=== PATIENT | female | born 1975 | race Caucasian/White ===

== ENCOUNTER → 2016-04-05 | Outpatient (CLI) | payer BC, MEDICARE ==
[2014-01-02 14:34] VITALS: BP 106/65
[~2016-04-05] MED LIST: AMIT25TA PO; CIPR500T94 PO; DIAZ5TAB4 PO; Hydrocodone/Acetaminophen PO; IOHEXOL 180 MG/ML 10 ML VIAL. ONE; METR500T PO; NAPR500T3 PO; OXYC-323 PO; TIZA4TAB PO; TOPI100T90 PO; VENL150C PO; methylPREDNISolone ACETATE 40 MG/ML VIAL. ONE; methylPREDNISolone ACETATE 80 MG/ML VIAL. ONE
--- NOTE | 2016-04-05 17:30 | PAIN ---
DATE OF SERVICE: 04/05/2016 INITIAL CONSULTATION CHIEF COMPLAINT: Low back and right lower extremity pain. HISTORY OF PRESENT ILLNESS: This is a 40-year-old female who presents with history of pain for about 5 months, increasing in the low back and right lower extremity, radiating to the posterior gluteus, posterolateral thigh, lateral anterior thigh, medial lower leg and lateral posterior lower leg into the foot and involving the lateral toes. The patient reports it is worse with standing and walking, changing positions, walking more than about 50 yards. The patient reports the pain is constant, sharp, stabbing, shooting and throbbing with radiating pain in the right leg as described. The patient did have some physical therapy as recently as January 2016, which she reports did help to a mild extent. Also has some chiropractic treatment in the past, which has been helpful, but nothing has been decreasing the pain significantly. The patient has tried naproxen as well as oxycodone and diazepam, all of which do decrease the pain to a moderate extent, but nothing keeping it away permanently. The patient reports no injury or accident she is aware of the pain became up fairly suddenly. The patient did have MRI scan of the lumbar spine on 03/20/2016 showing degenerative disk disease involving the mid and lower lumbar spine with mild central spinal canal stenosis at L4-L5 with mild generalized disk bulge at this level as well as L5-S1 and L3-L4 without significant stenosis at L3-L4 and L5-S1 levels with mild central stenosis at L4-L5. The patient reports her disability rating from 0 to 10, 10 being the worst, is an 8 with family and home responsibilities and recreation, 7 with social activity and occupation, 9 with sexual behavior, 6 with self care and 7 with life support activities. PAST MEDICAL HISTORY: Significant for arthritis, fibromyalgia, depression, dizziness, headaches, irritable bowel syndrome, cigarette smoking. PREVIOUS SURGERY: Include total hysterectomy in 2006, right knee scope in the past, laparoscopic cholecystectomy in 2014 and left ankle surgery in the past as well. CURRENT MEDICATIONS: Include diazepam, naproxen, tizanidine, oxycodone, amitriptyline, and Effexor. ALLERGIES: The patient has no known drug allergies. FAMILY HISTORY: Significant for depression and degenerative disk disease in patient's mother. SOCIAL HISTORY: The patient does not drink, is , lives with her spouse and 2 children at home, does smoke less than a pack a day of cigarettes over the past 15 years. REVIEW OF SYSTEMS: The patient's review of systems is positive for those items mentioned in the history of present illness. All systems reviewed and otherwise negative. It is complete, full and well documented on the patient's chart. PHYSICAL EXAMINATION: VITAL SIGNS: Today, blood pressure is 128/82, pulse 79, respirations 20, temperature is 98.4 degrees Fahrenheit. Height is 5 feet 5-1/2 inches and weight is 230 pounds. GENERAL: The patient is awake, alert, oriented, appropriate, very pleasant demeanor. HEENT: Head shows normocephalic, atraumatic. Extraocular movements are intact and symmetrical. Oral cavity shows mucous membranes moist and pink. Dentition is intact. NECK: Shows anterior throat supple without palpable lymphadenopathy noted. Swallow reflex is symmetrical. CHEST: Shows normal on inspection. Breath sounds clear to auscultation bilaterally. HEART: Shows S1 and S2 clear. ABDOMEN: Obese, soft, nontender, nondistended. No palpable organomegaly is noted. No rebound or guarding demonstrated. BACK: The patient's back shows spine grossly in midline. Normal-appearing thoracic kyphosis and lumbar lordotic curvatures. The patient's lumbar paraspinous musculature shows some moderate tenderness with palpation bilaterally in the middle and lower distribution of paraspinous muscles, but only diffusely without evidence of atrophy or hypertrophy. The patient shows good rotation and motion of the lumbar spine, both laterally greater than 10 degrees, right and left as well as extension greater than 10 degrees, forward flexion 45 degrees. No tenderness over the spinous processes. No tenderness over the sacrum and sacroiliac regions bilaterally. EXTREMITIES: Lower extremities show deep tendon reflexes at 2+ in the patellar, 1+ tendo calcaneus tendons. Motor exam is strong with 5/5 dorsiflexion and extension as well as quadriceps and hamstring flexion and are intact. Peripheral pulses are 1+ posterior tibial and dorsalis pedis pulses. No peripheral edema is noted. No clubbing, no cyanosis. Lower extremities are warm and dry to touch, equal in color and appearance. Straight leg raising noted to be positive on the right at about 45 degrees with pain at the lateral and posterior right thigh as well as into the medial lower leg, which is decreased with knee flexion. Left side is negative. Gaenslen's and Elliott's maneuvers are negative bilaterally. The patient is able to stand, stand on her toes without significant difficulty or loss of balance, is walking with a normal-appearing gait for short distance in the office, is not using any assistive devices such as canes or walkers to ambulate. IMPRESSION: 1. This is a 40-year-old female with about a 5-month history of increasing pain in low back, right lower extremity pain. She has had a history of back pain in the past, but never with radicular qualities as extensive and is distance in the leg and foot as she is experiencing now. 2. MRI scan as noted. 3. History of arthritis. 4. Fibromyalgia. 5. Cigarette smoking. PLAN: Options were discussed with the patient including conservative medical management, physical therapy, interventional techniques and she is doing physical therapies on her own at home and still does stretching and strengthening exercises. She would like to pursue interventional techniques. We discussed a lumbar epidural steroid injection using description as well as anatomical models to describe the procedure. Risks were then discussed including, but not limited to bleeding, infection, possibility of epidural hematoma and subsequent neurologic compromise, dural puncture, headaches, spinal cord and/or nerve damage, side effects of steroid medication and poor results regarding pain control. The patient understands and wished to proceed. The patient will return to clinic in approximately 2 weeks for followup. She was counseled on her return appointment, activity level, and side effects to be aware of. DIAGNOSES: Lumbar radiculopathy with lumbar degenerative disk disease. PROCEDURE: Lumbar epidural steroid injection, translaminar approach at the L4-L5 level using fluoroscopic guidance under sterile prep and drape with local anesthesia. MEDICATIONS INJECTED: Depo-Medrol 120 mg plus 10 mL of preservative-free normal saline and 2 mL Isovue for contrast. CONDITION AT DISCHARGE: Stable. The patient tolerated the procedure well, had no complications. TREV MORALEZ MD DR: JOEL/josé luis JOB#: [id number] / [id number]
== END | disposition home or self-care (01) ==
LOC: PNCL 07:49
PROVIDERS: ATTEND Anesthesiology
DX: M51.16 Intervertebral disc disorders with radiculopathy, lumbar region (principal); M19.90 Unspecified osteoarthritis, unspecified site; F32.9 Major depressive disorder, single episode, unspecified; F17.200 Nicotine dependence, unspecified, uncomplicated
CPT/HCPCS: 62323; J1030; J1040; 62327

== ENCOUNTER → 2016-04-19 | Outpatient (CLI) | payer BC, MEDICARE ==
[2014-01-02 14:34] VITALS: BP 106/65
--- NOTE | 2016-04-19 22:21 | PAIN ---
DATE OF SERVICE: 04/19/2016 DIAGNOSES: Lumbar radiculopathy with lumbar degenerative disk disease. HISTORY OF PRESENT ILLNESS: The patient is a 40-year-old female who returns for followup status post lumbar epidural steroid injection x 1. The patient reports about 75% improvement for the first week or so, the pain began to return in the low back and right lower extremity, mostly in the anterior thigh, lateral thigh, medial thigh, but less radiating into the lower leg than it was previously. The patient reports some pain in and across the back as well, but significant improvement from previous pain level. The patient reports the pain can be as high as an 8 on a scale of 10, but it is mostly about 3-4 on most days. The patient reports no new motor or sensory deficits, no new bowel or bladder incontinence or other complaints. PHYSICAL EXAMINATION: VITAL SIGNS: Show blood pressure 118/83, pulse 91, respirations are 18, temperature is 98.5 degrees Fahrenheit. Height is 5 feet 5 inches, weight 226 pounds. GENERAL: The patient is awake, alert, oriented, appropriate, very pleasant demeanor. HEENT: Head shows normocephalic, atraumatic. Extraocular movements intact, symmetrical. Oral cavity, mucous membranes are moist and pink. Dentition is intact. NECK: Shows anterior throat supple without palpable lymphadenopathy noted. Swallow reflex is symmetrical. CHEST: Shows normal on inspection. Breath sounds are clear to auscultation bilaterally. HEART: Shows S1 and S2 clear. ABDOMEN: Soft, obese, nontender, nondistended. No palpable organomegaly is noted. BACK: Shows spine grossly midline, normal appearing thoracic kyphosis and lumbar lordotic curvature. Lumbar paraspinous muscle shows some moderate tenderness with palpation in the lower lumbar distribution bilaterally, right and left, with some significant tenderness over the posterior superior iliac spine on the left side, but only very discrete point tenderness in this region without radiation. No tenderness over the sacrum and sacroiliac regions. The patient shows good rotation and motion of the lumbar spine, both laterally as well as extension and flexion without difficulty. EXTREMITIES: Lower extremities showed deep tendon reflexes 2+ in the patellar tendons. Motor exam is strong with 5/5 dorsiflexion, extension, quadriceps and hamstring flexion and equal bilaterally. Options were discussed with the patient and the patient's old chart was reviewed as her current medication regimen and updated. Current review of systems updated today as well. We will plan on second lumbar epidural steroid injection today with fluoroscopic guidance. Risks were again discussed including, but not limited to bleeding, infection, possibility of epidural hematoma, subsequent neurologic compromise, dural puncture, headaches, spinal cord and/or nerve damage, side effects of steroid medication and poor results regarding pain control. The patient understands and wishes to proceed. The patient will return to clinic in approximately 2 weeks for followup, was counseled on return appointment, activity level and side effects to be aware of. DIAGNOSIS: Lumbar radiculopathy with lumbar degenerative disk disease. PROCEDURES: Lumbar epidural steroid injection, translaminar approach, at the L4-L5 level using C-arm fluoroscopic guidance, under sterile prep and drape using local anesthetic. Medication injected is 120 mg Depo-Medrol plus 10 mL of preservative-free normal saline and 2 mL of Isovue for contrast. CONDITION AT DISCHARGE: Stable. The patient tolerated procedure well, had no complications. TREV MORALEZ MD DR: JOEL/josé luis JOB#: [id number] / [id number]
== END ==
LOC: PNCL 08:40
PROVIDERS: ATTEND Anesthesiology
DX: M51.16 Intervertebral disc disorders with radiculopathy, lumbar region (principal); M79.7 Fibromyalgia; D64.9 Anemia, unspecified; J45.909 Unspecified asthma, uncomplicated; F32.9 Major depressive disorder, single episode, unspecified
CPT/HCPCS: 62323; J1030; J1040

== ENCOUNTER → 2016-05-10 | Outpatient (CLI) | payer BC, MEDICARE ==
[2014-01-02 14:34] VITALS: BP 106/65
--- NOTE | 2016-05-11 21:41 | PAIN ---
DATE OF SERVICE: 05/10/2016 DIAGNOSES: Lumbar radiculopathy with lumbar degenerative disk disease. HISTORY OF PRESENT ILLNESS: The patient is a 40-year-old female who returns for followup status post lumbar epidural steroid injections x 2. The patient reports about 50-70% improvement, but only lasting about a week to week and a half after the injection. The patient reports now her pain is a 10 on a scale of 10 in the low back, mostly on the right side, also some pain in the low back on the left side, but in the right leg anterior lateral thigh, medial lower leg, the lower leg is much better than the upper leg still 8 on a scale of 10 in the upper leg and a 10 in the back. The patient reports no new motor or sensory deficits, no new bowel or bladder incontinence, still significant pain aching and dull with some radiating pain into the right leg as it was previously, again it is worse with standing and walking and changing position, however, she is sleeping better at night recently. PHYSICAL EXAMINATION: VITAL SIGNS: The patient's blood pressure is 124/80, pulse 90, respirations 18, temperature 98.2 degrees Fahrenheit, height is 5 feet 5 inches, weighs 226 pounds. GENERAL: The patient is awake, alert, oriented, appropriate, very pleasant demeanor. HEENT: Head shows normocephalic, atraumatic. Extraocular movements are intact and symmetrical. Oral cavity, mucous membranes are moist and pink. Dentition is intact. NECK: Shows anterior throat supple without palpable lymphadenopathy noted. Swallow reflex is symmetrical. Neck shows full rotation and motion of the cervical spine without difficulty. CHEST: Shows normal on inspection. Breath sounds are clear to auscultation bilaterally. HEART: Shows S1 and S2 clear. ABDOMEN: Obese, soft, nontender, nondistended. No palpable organomegaly, no rebound or guarding demonstrated. BACK: Shows spine grossly midline. Slight exaggeration of thoracic kyphosis, but normal lumbar lordotic curvature. Lumbar paraspinous musculature shows symmetrical on inspection with palpation is moderately tender with palpation in the middle and lower distribution, but only diffusely and only to a moderate extent without radiation, without asymmetry, without atrophy, hypertrophy. No tenderness with palpation over the sacrum and sacroiliac regions. The patient shows good rotation and motion of the lumbar spine, both laterally as well as extension and flexion without difficulty. EXTREMITIES: Lower extremities show deep tendon reflexes at 2+ in the patellar, 1+ tendo-calcaneus tendons are equal. Motor exam is strong with 5/5 dorsiflexion, extension, quadriceps and hamstring flexion and are symmetrical. Peripheral pulses are 1+ posterior tibial and dorsalis pedis pulses. No peripheral edema is noted. PLAN: Options were discussed with the patient. The patient's old chart was reviewed as her current medication regimen and updated. Current review of systems updated today as well. We will proceed with a third lumbar epidural steroid injection today with fluoroscopic guidance. Risks were again discussed including, but not limited to bleeding, infection, possibility of epidural hematoma, subsequent neurologic compromise, dural puncture, headaches, spinal cord and/or nerve damage, side effects of steroid medication and poor results regarding pain control. The patient understands and wishes to proceed. The patient will return to clinic in approximately 2 weeks for followup. She was counseled as to return appointment, activity level and side effects to be aware of. Also, will set up physical therapy with water pool therapy for the patient as ____ feel this may be the most helpful for her in the future. She was counseled as to maintaining this regimen as well as doing home strengthening and stretching exercises as they have shown her in the past with physical therapy. DIAGNOSIS: Lumbar radiculopathy with lumbar degenerative disk disease. PROCEDURES: Lumbar epidural steroid injection in translaminar approach at the L4-L5 level using C-arm fluoroscopic guidance under sterile prep and drape with local anesthetic. MEDICATIONS INJECTED: Depo-Medrol 120 mg plus 10 mL of preservative-free normal saline and 2 mL Isovue contrast. CONDITION AT DISCHARGE: Stable. The patient tolerated the procedure well, had no complications. TREV MORALEZ MD DR: JOEL/josé luis JOB#: [id number] / [id number]
== END | disposition home or self-care (01) ==
LOC: PNCL 09:14
PROVIDERS: ATTEND Anesthesiology
DX: M51.16 Intervertebral disc disorders with radiculopathy, lumbar region (principal); K82.9 Disease of gallbladder, unspecified; D64.9 Anemia, unspecified
CPT/HCPCS: 62323; J1030; J1040

== ENCOUNTER → 2016-06-22 | Outpatient (CLI) | payer BC, MEDICARE ==
[2014-01-02 14:34] VITALS: BP 106/65
[~2016-06-22] MED LIST changes: +IOHEXOL 180 MG/ML 10 ML VIAL. IT ONE; -IOHEXOL 180 MG/ML 10 ML VIAL. ONE; +LIDOCAINE 1% Multi-Dose 20 ML VIAL. ID ONE; -methylPREDNISolone ACETATE 40 MG/ML VIAL. ONE; -methylPREDNISolone ACETATE 80 MG/ML VIAL. ONE
--- NOTE | 2016-06-22 13:47 | KCIC ---
PROCEDURE Lumbar myelogram 06/22/2016 HISTORY Low back pain for 20 years with numbness and tingling down the left thigh with right leg pain radiating down the calf for 8 months. TECHNIQUE After the risks and benefits of the procedure were explained to the patient, written informed consent was obtained. The patient was placed prone on the fluoroscopy table and the lower back was prepped and draped in sterile fashion. 1 percent lidocaine was used as a local anesthetic. Under fluoroscopic guidance, the thecal sac of the lumbar cistern was punctured at the L3-4 level using a 25 gauge Lucretia needle. After confirming clear CSF return, 15 cc of Omnipaque 180 were injected into the thecal sac of the lumbar cistern under fluoroscopic control. Following this the needle was removed and hemostasis achieved at the puncture site. A sterile Band-Aid was placed in the skin puncture site. AP, lateral, bilateral oblique and standing neutral and flexion and extension lateral digital spot radiographs of the lumbar spine were obtained. Following this the patient was taken to CT where a CT scan of the lumbar spine was performed. This will be reported separately. The patient was then taken to the recovery area were she was observed for approximately 30 minutes prior to discharge home. The patient tolerated the procedure well and there were no immediate complications. The patient was sent home with an instruction sheet. The total fluoroscopic time for this study was 51 seconds. Nine digital spot radiographs were obtained. FINDINGS Minimal lateral curvature of the lumbar spine is seen convex to the left. Very mild anterolisthesis of L4 in relation to L5 is noted. Degenerative changes consisting of vertebral endplate sclerosis and minimal anterior vertebral body osteophyte formation are seen predominantly at the L4-5 disc space. A mild to moderate anterior extradural defect is seen upon the contrast column at this level. There is no evidence of complete block of contrast at any level involving the lumbar spine. The alignment of the lumbar vertebrae is maintained on the flexion and extension radiographs. IMPRESSION Degenerative changes are seen at L4-5 as outlined above. Electronically signed by: Elie Gonsales MD (Jun 22, 2016 13:45:21)
--- NOTE | 2016-06-22 13:56 | KCIC ---
PROCEDURE CT lumbar myelogram 06/22/2016 HISTORY Low back pain for 20 years with numbness and tingling in the left thigh and right leg pain which extends to the calf. TECHNIQUE This study was performed after the patient's lumbar myelogram. Contiguous, 0.6 millimeter axial sections were obtained through the lumbar spine. 3 millimeter reconstructed sagittal, axial and coronal images were obtained. One or more of the following individualized dose reduction techniques were utilized for this study: 1. Automated exposure control. 2. Adjustment of the mA and/or kV according to patient size. 3. Use of iterative reconstruction technique. FINDINGS Comparison is made the patient's lumbar myelogram performed earlier today. Additional comparison is made the patient's MRI of the lumbar spine dated 03/20/2016. Sagittal and coronal reconstructed images demonstrate minimal S-shaped curvature of the thoracolumbar spine. Degenerative changes consisting of vertebral endplate sclerosis and minimal anterior vertebral body osteophyte formation are seen involving predominantly the L4- 5 and L3-4 disc spaces. Mild scattered atherosclerotic plaque formation is seen involving the abdominal aorta and its branches. The L1-2 and L2-3 disc spaces are within normal limits. At the L3-4 disc space there is a minimal generalized disc bulge. Degenerative changes are seen along the facet joints bilaterally. There is mild ligamentum flavum hypertrophy bilaterally. These findings when combined do not result in significant central spinal canal or neural foraminal stenosis. At the L4-5 disc space there is mild to moderate generalized disc bulge. Degenerative changes are seen involving the facet joints bilaterally. There is moderate ligamentum flavum hypertrophy bilaterally. These findings when combined result in mild central spinal canal stenosis. Mild bilateral neural foraminal stenosis is seen. At the L5-S1 disc space there is a mild generalized disc bulge. Degenerative changes are seen involving the facet joints bilaterally. These findings when combined do not result in significant central spinal canal or neural foraminal stenosis. IMPRESSION The changes of degenerative disc disease are seen involving the mid and lower lumbar spine. These findings result in mild central spinal canal and mild bilateral neural foraminal stenosis at L4-5. Electronically signed by: Elie Gonsales MD (Jun 22, 2016 13:55:02)
--- NOTE | 2016-06-22 15:08 | KCIC ---
LUMBAR SPINE, FIVE VIEWS, 06/22/2016: History: Back pain AP and lateral views of the lumbar spine were obtained as well as flexion and extension standing views. The lumbar vertebral heights are well maintained. The intervertebral disc spaces are well preserved. There are degenerative changes involving the facet joints in the lower lumbar spine. There is a slight spondylolisthesis at L4-5. There is approximately 2-3 millimeters of anterior subluxation of L4 relative to L5 in the standing and extended positions and 4 millimeters with flexion. The vertebral alignment is otherwise normal. The paraspinous soft tissues are unremarkable. IMPRESSION: Moderate facet joint arthropathy in the lower lumbar spine with a minimal associated spondylolisthesis at L4-5. Electronically signed by: Romel Cee MD (Jun 22, 2016 15:06:44)
== END | disposition home or self-care (01) ==
LOC: KCIC 09:39
PROVIDERS: ATTEND Neurological Surgery
DX: M48.06 Spinal stenosis, lumbar region (principal); R20.0 Anesthesia of skin; R20.2 Paresthesia of skin; M79.604 Pain in right leg; M43.8X5 Other specified deforming dorsopathies, thoracolumbar region; M25.78 Osteophyte, vertebrae; I70.0 Atherosclerosis of aorta; M24.28 Disorder of ligament, vertebrae; M51.36 Other intervertebral disc degeneration, lumbar region; M43.16 Spondylolisthesis, lumbar region; M12.88 Other specific arthropathies, not elsewhere classified, other specified site
CPT/HCPCS: 72110; 72132; 72265

== ENCOUNTER → 2016-10-03 | Outpatient (CLI) | payer BC, MEDICARE ==
[2014-01-02 14:34] VITALS: BP 106/65
[~2016-10-03] MED LIST changes: -IOHEXOL 180 MG/ML 10 ML VIAL. IT ONE; -LIDOCAINE 1% Multi-Dose 20 ML VIAL. ID ONE; +TOPI100T8 PO; -TOPI100T90 PO
--- NOTE | 2016-10-03 15:19 | KCIC ---
EXAM: Thoracic spine, 2 views. HISTORY: Radiculopathy. Spinal stimulator placement. COMPARISON: None. FINDINGS: Frontal and lateral views of the thoracic spine are obtained. There is a dorsal column stimulator within the central canal terminating at the inferior aspect of T8. Bodies are normal in height and the disc spaces are preserved. There is no suspicious osseous lesion. There is no segmentation anomaly. IMPRESSION: 1. Dorsal column stimulator terminating at the inferior aspect of T8. 2. No acute osseous finding. Electronically signed by: Val Rossi MD (10/03/2016 3:15 PM) [id number]
== END | disposition home or self-care (01) ==
LOC: KCIC 11:48
PROVIDERS: ATTEND Neurological Surgery
DX: M54.14 Radiculopathy, thoracic region (principal)
CPT/HCPCS: 72072

== ENCOUNTER → 2017-09-03 | Outpatient (CLI) | payer BC, MEDICARE | END | disposition home or self-care (01) | LOC: KCIC 12:22 | DX: N20.1 Calculus of ureter (principal); Z87.442 Personal history of urinary calculi | CPT/HCPCS: 74018 ==